=== PATIENT | female | born 1945 | race Caucasian/White ===

== ENCOUNTER 2017-03-06 13:08 | Emergency (ER) | payer OTHER ==
[~2017-03-06] VITALS: Ht 167.6 cm; Wt 42.6 kg
[2017-03-06 13:41] VITALS: BP 148/86
--- NOTE | 2017-03-06 13:42 | NUR ---
Patient discharged to home in stable condition. Written and verbal after care instructions given. Patient verbalizes understanding of instruction.
== END 2017-03-06 13:41 | disposition home or self-care (01) ==
LOC: ER 13:10
DX: T41.3X5A Adverse effect of local anesthetics, initial encounter (principal); Y92.89 Other specified places as the place of occurrence of the external cause; E11.9 Type 2 diabetes mellitus without complications
CPT/HCPCS: 99283; A4606; Z7610